=== PATIENT | female | born 1950 | race African-American/Black ===

== ENCOUNTER → 2017-12-21 | Outpatient (CLI) | payer OTHER ==
[~2017-12-21] MED LIST: APRISO0.375 GM PO; DYAZIDE 37.5-21 EACH PO; FUROSEMIDE 20 M20 MG PO; LISINOPRIL20 MG PO; POTASSIUM20; TESSALON PERLE100 MG PO; ZPAK PO
== END ==
LOC: RAD 02:20
DX: Z12.31 Encounter for screening mammogram for malignant neoplasm of breast (principal)

== ENCOUNTER → 2019-11-07 | Outpatient (CLI) | payer OTHER | LOC: RAD 12:44 | DX: M76.892 Other specified enthesopathies of left lower limb, excluding foot (principal); M25.551 Pain in right hip; R10.30 Lower abdominal pain, unspecified; G89.29 Other chronic pain ==

== ENCOUNTER → 2019-11-17 | Outpatient (CLI) | payer OTHER | LOC: MRI 10:42 | DX: S83.281A Other tear of lateral meniscus, current injury, right knee, initial encounter (principal); M79.89 Other specified soft tissue disorders; M79.604 Pain in right leg; X58.XXXA Exposure to other specified factors, initial encounter; Y93.89 Activity, other specified; Y92.89 Other specified places as the place of occurrence of the external cause; Y99.8 Other external cause status ==